=== PATIENT | female | born 1985 | race Caucasian/White ===

== ENCOUNTER 2019-08-30 19:59 | Emergency (ER) | payer OTHER ==
[2019-08-30 20:04] VITALS: TEMP 97.4
[2019-08-30 20:42] LABS: Glucose,Whole Blood 96 mg/dL (75-99)
[2019-08-30 20:53] LABS: Appearance,Urine Turbid (Clear); Bacteria,Urine Rare /hpf; Bilirubin,Urine Negative (Negative); Blood,Urine Negative (Negative); Color,Urine Yellow; Glucose,Urine (UA) Negative (Negative); Hyaline Casts,Urine 97 /lpf (0-2); Ketones,Urine Trace (Negative); Leukocyte Esterase,Urine Large (Negative); Mucus,Urine Many /hpf; Nitrite,Urine Negative (Negative); PH, Urine 5.5 (5.0-8.0); Protein,Urine 1+ (Negative); RBC,Urine 9 /hpf (0-5); Specific Gravity,Urine 1.019 (1.001-1.035); Squamous Epithelial Cell,Urine 46 /hpf (0-4); Urobilinogen,Urine <2.0 mg/dL (<2.0); WBC,Urine 64 /hpf (0-5)
--- NOTE | 2019-08-30 20:56 | ED ---
General Adult HPI - General Chief complaint: Syncope Stated complaint: Syncopal Episode Time Seen by Provider: 08/30/19 20:08 Source: patient, RN notes reviewed, old records reviewed Mode of arrival: wheelchair Limitations: no limitations - History of Present Illness Initial comments: 33-year-old female patient with no pertinent past medical history presents to ED for evaluation of syncope. Patient reports that she was drinking alcohol today, states that she drank approximately 2 bottles of wine. Patient reports that she sat up to scoop some ice cream out of a carton when she began have tunnel vision and had a syncopal episode. Probably was lost consciousness for approximately 10 seconds. Patient then sat up and fell to the ground. EMS was called. Patient drank 2 bottles of water and states that she is asymptomatic at this time. Systemic: Pt denies fatigue, fever/chills, rash. Pt denies weakness, night sweats, weight loss. Neuro: Pt denies headache, visual disturbances, syncope or pre-syncope. HEENT: Pt denies ocular discharge or irritation, otalgia, rhinorrhea, pharyngitis or notable lymphadenopathy. Cardiopulmonary: Pt denies chest pain, SOB, heart palpitations, dyspnea on exertion. Abdominal/GI: Pt denies abdominal pain, n/v/d. : Pt denies dysuria, burning w/ urination, frequency/urgency. Denies new onset urinary or bowel incontinence. MSK: Pt denies myalgia, loss of strength or function in extremities. Neuro: Pt denies new onset weakness, paresthesias. - Related Data Allergies Allergy/AdvReac Type Severity Reaction Status Date / Time No Known Allergies Allergy Verified 08/30/19 20:04 Review of Systems ROS Statement: Those systems with pertinent positive or pertinent negative responses have been documented in the HPI. ROS Other: All systems not noted in ROS Statement are negative. Past Medical History Past Medical History: No Reported History History of Any Multi-Drug Resistant Organisms: None Reported Past Surgical History: No Surgical Hx Reported Past Psychological History: No Psychological Hx Reported Smoking Status: Never smoker Past Alcohol Use History: Occasional Past Drug Use History: Marijuana General Exam - General Exam Comments Initial Comments: Constitutional: NAD, AOX3, Pt has pleasant affect. HEENT: NC/AT, trachea midline, neck supple, no lymphadenopathy. Posterior pharynx non erythematous, without exudates. External ears appear normal, without discharge. Mucous membranes moist. Eyes PERRLA, EOM intact. There is no scleral icterus. No pallor noted. Cardiopulmonary: RRR, no murmurs, rubs or gallops, no JVD noted. Lungs CTAB in anterior and posterior ferguson. No peripheral edema. Abdominal exam: Abdomen soft and non-distended. Abdomen non-tender to palpation in all 4 quadrants. Bowel sounds active in LLQ. No hepatosplenomegaly. No ecchymosis Neuro: CN II-XII intact. No nuchal rigidity. No raccon eyes, no kelly sign, no hemotympanum. No cervical spinal tenderness. Repeat neurologic exam wnl. MSK: No posterior calf tenderness bilaterally, homans sign negative bilaterally. Posterior tibialis and radial pulse +2 bilaterally. Sensation intact in upper and lower extremities. Full active ROM in upper and lower extremities, 5/5 stregnth. Limitations: no limitations Course Vital Signs 08/30/19 20:01 Temperature 97.4 F L Pulse Rate 100 Respiratory 20 Rate Blood Pressure 112/78 O2 Sat by Pulse 100 Oximetry Medical Decision Making - Medical Decision Making 33-year-old female patient with no pertinent past medical history presents to ED for evaluation of syncope. Patient reports that she was drinking alcohol today, states that she drank approximately 2 bottles of wine. Patient reports that she sat up to scoop some ice cream out of a carton when she began have tunnel vision and had a syncopal episode. Probably was lost consciousness for approximately 10 seconds. Patient then sat up and fell to the ground. EMS was called. Patient drank 2 bottles of water and states that she is asymptomatic at this time. Pt VSS, afebrile. Physical exam did not display acute pathology. Neurologic exam wnl x2. Patient was reevaluated and continues to be asymptomatic. Glucose 96. HCG negative. UA was contaminated we'll culture. Patient does not have any dysuria or other symptoms. EKG is nonischemic. Patient requesting discharge. Patient discharged with up with primary care provider D her condition worsens. Case discussed with Dr. Hui. - Lab Data Lab Results 08/30/19 08/30/19 08/30/19 Range/Units 20:30 20:30 20:40 POC Glucose (mg/dL) 96 (75-99) mg/dL POC Glu Anti Tank [place] ID Thursday, Leah Urine Color Yellow Urine Appearance Turbid H (Clear) Urine pH 5.5 (5.0-8.0) Ur Specific [place] 1.019 (1.001-1.035) Urine Protein 1+ H (Negative) Urine Glucose (UA) Negative (Negative) Urine Ketones Trace H (Negative) Urine Blood Negative (Negative) Urine Nitrite Negative (Negative) Urine Bilirubin Negative (Negative) Urine Urobilinogen <2.0 (<2.0) mg/dL Ur Leukocyte Esterase Large H (Negative) Urine RBC 9 H (0-5) /hpf Urine WBC 64 H (0-5) /hpf Ur Squamous Epith Cells 46 H (0-4) /hpf Urine Bacteria Rare H (None) /hpf Hyaline Casts 97 H (0-2) /lpf Urine Mucus Many H (None) /hpf Urine HCG, Qual Not Detected (Not Detectd) - EKG Data -: EKG Interpreted by Me (and Dr. Hui) EKG Comments: Ventricular rate 85, SC interval 122, QRS 86, QT/QTC 364/433. Normal sinus rhythm with sinus arrhythmia. Normal EKG, no concern for acute ischemia. Disposition Clinical Impression: Episode of syncope Disposition: HOME SELF-CARE Condition: Stable Instructions (If sedation given, give patient instructions): Syncope (ED) Additional Instructions: Follow-up with primary care provider tomorrow. Recommend no alcohol usage today. Return to ER if condition worsens. Is patient prescribed a controlled substance at d/c from ED?: No Referrals: None,Stated [Primary Care Provider] - 1-2 days
[2019-08-30 21:57] VITALS: BP 122/74; PULSE 84; RESP 18
== END 2019-08-30 21:43 | disposition home or self-care (01) ==
LOC: EC 19:59
DX: R55 Syncope and collapse (principal); W01.0XXA Fall on same level from slipping, tripping and stumbling without subsequent striking against object, initial encounter
CPT/HCPCS: 36415; 81001; 81025; 87086; 93005; 99284